=== PATIENT | male | born 1955 | race Caucasian/White ===

== ENCOUNTER 2020-09-11 12:44 | Emergency (ER) | payer MEDICARE, MEDICAID, SELFPAY ==
--- NOTE | ~2020-09-11 | XR_ITS ---
EXAMINATION: XR ELBOW, LEFT CLINICAL INFORMATION: Swelling. Fall/trauma 3 months ago. COMPARISON: None TECHNIQUE: AP, lateral, and oblique views of the left elbow. FINDINGS: There is superficial soft tissue swelling overlying the olecranon. The bony structures are intact and there is no acute or healing fracture, dislocation, destructive process. No visible elbow capsular effusion. No joint narrowing or erosive change. No soft tissue mineralization. XR/XR elbow LT min 3V IMPRESSION: 1. Soft tissue swelling overlying the olecranon. 2. Bony structures are unremarkable. No visible capsular effusion.
[2020-09-11 12:52] VITALS: BP 110/62; PULSE 68; RESP 18; TEMP 36.8; O2SAT 96; BMI 28.7
[2020-09-11] MEDS: Amoxicillin/Potassium Clav 875 MG TABLET PO (14:19)
[2020-09-11] MEDS: Moxifloxacin HCl 0.5 % Oph Sol 3 ML DRPBTL 1 DROP EYE-RIGHT (14:26)
--- NOTE | 2020-09-11 14:34 | ED_ITS ---
HPI - Extremity Problem General Chief complaint: Extremity Injury, Upper Stated complaint: elbow injury Time Seen by Provider: 09/11/20 14:02 Source: patient Mode of arrival: ambulatory History of Present Illness HPI Narrative: 64-year-old male with a past medical history of arrhythmia presenting to the ED complaining of left elbow swelling x3 months s/p fall 3 months ago. Denies more recent fall/injury or trauma. Also reports right ear pain x months with assoc hearing loss. Admits was treated for fungal ear infection with antifungal drops without resolution of symptoms. Denies fever, chills, headache, otorrhea, sore throat MD Complaint: extremity swelling Related Data Previous Rx's Medication Instructions Recorded acetaminophen [Tylenol Extra 500 mg PO Q6H PRN #20 tab 09/11/20 Strength] amoxicillin-pot clavulanate 1 tab PO Q12H 7 Days #14 tab 09/11/20 [Augmentin] ciprofloxacin-dexamethasone 4 drp OTIC (EARS) BID 7 Days #7.5 09/11/20 [Ciprodex] ml Allergies Allergy/AdvReac Type Severity Reaction Status Date / Time No Known Allergies Allergy Unverified 12/09/19 15:33 Review of Systems Review of Systems: Constitutional: No Fever, No Chills ENT/Mouth: + Ear Pain, + hearing loss, No Nasal Congestion, No Sinus Pain, No sore throat, No Rhinorrhea Cardiovascular: No Chest Pain, No SOB Respiratory: No Cough Musculoskeletal: No joint pain, No Myalgias, + Joint Swelling Skin: No Skin Lesions, No rash Neuro: No Weakness, No Numbness, No Paresthesias Yes all other systems are reviewed and are negative [facility] Past Medical History Attestation statement: The following information was validated with the patient. Medical History (Updated 09/11/20 @ 14:53 by SUSANNA Horn) Arrhythmia Social History Social History Advance Directives: Yes Advance Directives Information Provided: No Advance Directives on File: No Physical Exam Vital Signs: Vital Signs: Last Vital Signs Temp 98.2 F 09/11/20 12:52 Pulse 68 09/11/20 12:52 Resp 18 09/11/20 12:52 BP 110/62 09/11/20 12:52 Pulse Ox 96 09/11/20 12:52 Body Mass Index 28.7 Const: General: cooperative, healthy appearing and no acute distress Orientation/consciousness: patient oriented x3 Limitations: no limitations HENMT: Head: Yes normal to inspection Ears: TM normal on the left, mastoids normal, external ear abnormal no auricular tenderness, hearing grossly impaired on the right, normal mastoids bilaterally and unable to visualize TM on the right (Secondary to swelling/inflamed canal) General nose exam: Normal external nose present Face and sinus: Yes normal facial exam Eyes: General: appearance normal, both eyes and all related structures EOM: EOMs intact bilaterally Neck: Neck: Yes normal visual inspection, Yes no lymphadenopathy and Yes no meningeal signs Resp: Effort & Inspection: normal respiratory effort and not labored Cardio: Rate: regular rate Peripheral pulses: radial pulses present GI: Inspection: Yes normal to inspection Skin: Rashes: no rashes Wounds: no wounds Neuro: General: patient oriented x3 and no meningeal signs Gait exam (Neuro): Normal gait present Extrem: Other: Left elbow with olecranon bursitis. No overlying cellulitis. Nontender. Full range of motion intact. Neurovascularly intact distally Course Course Course Narrative: XR elbow LT min 3V IMPRESSION: 1. Soft tissue swelling overlying the olecranon. 2. Bony structures are unremarkable. No visible capsular effusion. MDM - Extremity (Nontraumatic) MDM Narrative Medical decision making narrative: 64-year-old male with a past medical history of arrhythmia presenting to the ED complaining of left elbow swelling x3 months s/p fall 3 months ago. Also reports right ear pain x months with assoc hearing loss. On exam VSS, NAD/well-appearing, physical exam as above. Per chart review patient was previously on Cipro otic drops and Cipro p.o., and clotrimazole without any relief in June (2 mos ago and never followed up with ENT). Mastoids normal. No evidence of malignant otitis externa or mastoiditis Physical exam consistent with likely otitis externa and otitis media, unable to visualize right TM. Discussed with patient would like to insert Wick however he refused. Discussed importance of close follow-up with ENT specialist, he verbalized understanding Frederick wrap applied to left elbow, discussed follow-up needed with Orthopedics Discharge Plan Discharge Clinical Impression: Otitis media Otitis externa Qualifiers: Chronicity: chronic Laterality: left Bursitis Qualifiers: Bursitis location: elbow Elbow bursitis location: unspecified Patient Disposition: Home, Self-Care Instructions: Elbow Bursitis (ED), Ear Infection (ED) Additional Instructions: YOU NEED TO SEE THE ENT DOCTOR SOON POSSIBLE AUGMENTIN IS AN ORAL ANTIBIOTIC, TAKE PRESCRIBED CIPRODEX IS AN EAR DROP ANTIBIOTIC THAT ALSO HAS A STEROID MIXED IN WHICH WILL HELP WITH YOUR EAR SWELLING IF YOU HAVE WORSENING EAR PAIN, DRAINAGE FROM EAR, FEVER OR CHILLS PLEASE RETURN TO THE ED WEAR FREDERICK WRAP ON ELBOW FOR SWELLING/COMFORT AND STABILITY FOLLOW-UP WITH ORTHOPEDIC DOCTOR TAKE TYLENOL FOR PAIN Prescriptions: New acetaminophen [Tylenol Extra Strength] 500 mg tablet 500 mg PO Q6H PRN (Reason: pain or fever) Qty: 20 RF: 0 ciprofloxacin-dexamethasone [Ciprodex] 0.3-0.1 % drops,suspension 4 drp otic (ears) BID 7 Days Qty: 7.5 RF: 0 amoxicillin-pot clavulanate [Augmentin] 875-125 mg tablet 1 tab PO Q12H 7 Days Qty: 14 RF: 0 Referrals: Claire Elmore PA-C [Physician Front Office Supervisor] - 1 week Jeromy Pereira [Physician] - 2 days Interventions: ED Discharge Assessment Last Done: 09/11/20 14:57 Discharge Date/Time: 09/11/20 14:57
== END 2020-09-11 14:57 | disposition home or self-care (01) ==
PROVIDERS: Emergency Provider Emergency Medicine; PCP Family Medicine Geriatric Medicine
DX: M70.32 Other bursitis of elbow, left elbow (principal); Y93.9 Activity, unspecified; H66.91 Otitis media, unspecified, right ear
CPT/HCPCS: 73080; 99283; 99284

== ENCOUNTER 2021-12-06 11:15 | Emergency (ER) | payer MEDICARE, MEDICAID, SELFPAY ==
[2021-12-06 11:26] VITALS: BP 124/81; PULSE 54; RESP 18; TEMP 36.4; O2SAT 94; BMI 28.7
== END 2021-12-06 12:46 | disposition left against medical advice (07) ==
PROVIDERS: Emergency Provider Emergency Medicine; PCP Hospitalist
DX: H92.01 Otalgia, right ear (principal)
CPT/HCPCS: 99281

== ENCOUNTER 2024-05-17 11:09 | Emergency (ER) | payer MEDICARE, MEDICAID, SELFPAY ==
--- OUTSIDE RECORDS SUMMARY | 2024-05-17 14:02 | XMS_ITS ---
Author Organization [facility] Address [address] [address] Care Team Providers Care Inspector Metal Can Name Role Phone RAYMUNDO SYKES Primary Care Provider REASON FOR VISIT Refills Medications Medication SIG (Take, Route, Frequency, Duration) Notes Start Date End Date Status Albuterol Sulfate 108 (90 Base) MCG/ACT 1 puff as needed Inhalation every 4 hrs for 30 days please have patient call office and book appt. Active Encounters Encounter Location Date Provider Diagnosis [facility] [address] [address] 12/02/2023 ONEL FONSECA Plan Of Treatment Medication Medication Name Sig Start Date Stop Date Notes Albuterol Sulfate 108 (90 Base) MCG/ACT 1 puff as needed Inhalation every 4 hrs for 30 days please have patient call office and book appt. Progress Notes * Juan MARCUSDOB:1955 ( 68 yo M)Acc No.[id number]:12/02/2023 Patient:?Juan MARCUS :1955???Age:68 Y???Sex:Male Address:[address] [place] [phone] * Refills? Refill Albuterol Sulfate Aerosol Powder Breath Activated, 108 (90 Base) MCG/ACT, Inhalation, 1, 1 puff as needed, every 4 hrs, 30 days, Refills=0 * true * Date:? Generated for Printi ng/Faxing/eTransmitting on:?05/17/2024 02:01 PM EST
--- OUTSIDE RECORDS SUMMARY | 2024-05-17 14:02 | XMS_ITS ---
Author Organization [facility] Address [address] [facility] [address] [place] [address] Care Team Providers Care Manager Balance Name Role Phone ONEL FONSECA Primary Care Provider REASON FOR VISIT Albuterol and Proair PA Encounters Encounter Location Date Provider Diagnosis [facility] [address] [facility] [address] [place] [address] 01/14/2024 ONEL FONSECA Plan Of Treatment No Information Progress Notes * Juan MARCUSDOB:1955 ( 68 yo M)Acc No.[id number]:01/14/2024 Patient:?Juan MARCUS :1955???Age:68 Y???Sex:Male Address:[address] [place] [phone] * true * Date:? Generated for Sharon veliz/Fatmata/eTransmitting on:?05/17/2024 02:02 PM EST
--- OUTSIDE RECORDS SUMMARY | 2024-05-17 14:02 | XMS_ITS | Clinical Summary ---
Author Organization [facility] Address [address] [place] [address] Care Team Providers Care Loan Servicing Specialist Name Role Phone Unavailable Primary Care Provider Unavailabl e Source Comments PLEASE NOTE, if this patient is a minor, it may be UNLAWFUL to discuss sensitive information that is contained in these records (such as FAMILY PLANNING, MENTAL HEALTH or SUBSTANCE ABUSE) with the minor patient's parent or other person without the patient's specific authorization.[facility] Allergies No known active allergies Medications No known medications Active Problems Problem Noted Date Diagnosed Date Tobacco use disorder 11/10/2020 Overview (11/10/2020): Seen at [facility] lung cancer screening, scheduled for LDCT Mixed hyperlipidemia 10/16/2020 Overview (11/10/2020): Last Assessment & Plan: Well controlled lipid profile. Continue dietary modification. Paroxysmal atrial fibrillation ([facility]) 021 Overview (11/10/2020): Last Assessment & Plan: He has no symptoms referable to his afib. Continue with BB and CCB at current doses. Continue Anticoagulation. The risks and benefits of anticoagulation discussed with the patient and the patient agrees to continue. Depression 01/01/2017 Overview (11/10/2020): Currently without psych Insomnia 01/01/2017 Benign prostatic hyperplasia 06/27/2016 CTS (carpal tunnel syndrome) 06/27/2016 Overview (11/10/2020): Right CTS; left CTR Thrombocytopenia ([facility]) 06/27/2016 Overview (11/10/2020): 06/07 range 79,000- 126,000 Chronic bronchitis ([facility]) 04/04/2015 Overview (11/10/2020): + Symptoms. PFTs show reactive airways only. Discussed w/pulm - emphysema on CT non-contributory Low dose CT (02/24/17):subcemtimeter pulm nodules, and emphysematous changes Cocaine abuse ([facility]) 12/30/2013 Overview (11/10/2020): Per outside records 12/05 Hep C w/o coma, chronic ([facility]) 10/15/2012 Overview (11/10/2020): Chronic Hepatitis C Genotype 2B. Tx Started 05/25/15 Sovaldi & Ribavirin for 12 Weeks. End Date 08/17/15. Complete ETR but failed SVR: pos PCR 09/22/2015. (Failed IFN/RIBA x 2 in 2000; failed sovaldi and ribavirin 2015.) Immunizations Name Administration Dates Next Due Hep A, adult 06/20/2016,12/09/2013 PNEUMOCOCCAL POLYSACCHARIDE PPV23 12/09/2013 PPD 05/19/2016 TDAP 10/15/2012 Social History Tobacco Use Types Packs/Day Years Used Date Smoking Tobacco: Every Day Cigarettes Smokeless Tobacco: Never Comments:20-30 a day Alcohol Use Standard Drinks/Week Comments Not Currently 0 (1 standard drink = 0.6 oz pur e alcohol) Social Connections Answer Date Recorded Connectedness 0 11/10/2020 Financial Resource Strain Answer Date R ecorded Financial Resource Strain 0 2020 Stress Answer Date Recorded Stress 0 11/10/2020 Physical Activity Answer Date Recorded Physical Activity 0 11/01/2020 Food Insecurity Answer Date Recorded Food 0 11/10/2020 Transportation Needs Answer Date Record ed Transportation 0 11/10/2020 Housing Stability Answer Date Recorded Housing 0 11/10/2020 Safety and Environment Answer Date John rded Safety 0 11/10/2020 Utilities Answer Date Recorded Utilities 0 11/10/2020 Employment Answer Date Recorded Employment 0 11/01/2020 Sex and Gender Information Value Date Recorded Sex Assigned at Male 11/10/2020 10:40 AM PDT Legal Sex Male 7:38 AM PST Gender Identity Male 11/10/2020 10:40 AM PDT Sexual Orientation Straight 11/10/2020 10 :40 AM PDT Last Filed Vital Signs Vital Sign Reading Time Taken Comments Blood Pressure 144/83 07/02/2022 2:15 PM EDT Pulse 71 07/02/2022 2:15 PM EDT Temperature 36.7 ??C (98.1 ??F) 11/10/2020 1:42 PM ED T Respiratory Rate 20 11/10/2020 1:42 PM EDT Oxygen Saturation 95% 11/10/2020 1:42 PM EDT Inhaled Oxygen Concentration - - Weight 84 kg (185 lb 3.2 oz) 11/10/2020 1:42 PM EDT Height 177.5 cm (5' 9.88 ) 11/10/2020 1:42 PM ED T Body Mass Index 26.66 11/10/2020 1:42 PM EDT Plan of Treatment Health Maintenance Due Date Last Done Comments Dental Perio Charting 1955 Diabetes Screening 1955 Lipid Screening 1955 Tobacco Cessation Counseling (#1) [address] Colonography 09/14/1999 Colonoscopy 09/14/1999 Colorectal Cancer Screening 09/14/1999 FIT/gFOBT 09/14/1999 Fecal DNA 09/14/1999 Flexible Sigmoidoscopy 09/14/1999 Imm-Zoster, Recombinant (1 of 2) 2004 Imm-Hepatitis B (1 of 3 - Ri sk 3-dose series) 2014 Imm-Pneumococcal 65+ (2 of 2 - PCV) 12/09/201412/09 Abdominal Aortic Aneurysm Screening 09/14/2019 Falls Prevention 09/14/2019 Depression Monitoring 02/10/2021 11/10/2020 Imm-DTaP/Tdap/Td (2 - Td or Tdap) 10/15/2022 013 Hypertension Screening (#1) 07/02/2023 Dental Prophy 07/05/2023 07/02/2022 Ftd-NGGDP-06 (3 - season) 2023 022, 02/27/2021 Imm-Influenza (#1) 2023 Alcohol and Drug Screen 03/24/2024 11/10/2020 Imm-Hepatitis A Completed 06/20/2016, 12/09/2013 Procedures Procedure Name Priority Date/Time Associated Diagnosis Comments PROPHYLAXIS - ADULT Routine 07/02/2022 2:20 PM ED T Caries Encounter for dental examination and cleaning without abnormal findings from Last 3 Months or Most Recently Relevant to Health Maintenance [place] [facility]
--- OUTSIDE RECORDS SUMMARY | 2024-05-17 14:02 | XMS_ITS | Clinical Summary ---
Author Organization [facility] it Address [address] [place] [address] Care Team Providers Care Butter Grader Name Role Phone Denzel Roman MD Primary Care Provider [phone] Medications atorvastatin (LIPITOR) 40 mg tablet TAKE ONE TABLET BY MOUTH EVERY DAY 90 tablet 2 02/16/2024 Active Surgical History Surgery Date Site/Laterality Comments APPENDECTOMY 1962 PROCEDURE: HISTORICAL APPENDECTOMY COLONOSCOPY 2012 PROCEDURE: HISTORICAL COLONOSCOPY; COMMENT: normal CARPAL TUNNEL RELEASE Left PROCEDURE: HISTORICAL CARPAL TUNNEL REL Medical History Medical History Date Comments Depression DX:Depression Bipolar 1 disorder (CMS/HCC) DX: Bipolar 1 disorder (HCC) Hep C w/o coma, chronic (CMS/HCC) DX:Hep C w/o coma, chronic (HCC) Tobacco use disorder DX:Tobacco use disorder 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/04/2015 DX:COPD (chronic obs tructive pulmonary disease) with emphysema (HCC) BPH (benign prostatic hypertrophy) 06/27/2016 DX:BPH (benign prostatic hypertrophy) Thrombocytopenia (CMS/HCC) 06/27/2016 DX:Th rombocytopenia (HCC); COMMENT: 06/07 range 79,000- 126,000 CTS (carpal tunnel syndrome) 06/27/2016 DX: CTS (carpal tunnel syndrome); COMMENT: Right CTS; left CTR Depression 01/01/2017 DX:Depression Family History Medical History Relation Name Comments Other: liver cancer Father ; CAD Abdominal Aortic Anuerysm (AAA) Maternal Grandfather Diabetes Maternal Grandmother Emphysema Mother Relation Name Status Comments Brother Alive times 2, health y Daughter Alive healthy Father Alive heart disease, 3 heart attacks: CABG Maternal Grandfather (Age 76) AA A ruptured Maternal Grandmother (Age 80s) o ld age Mother (Age 68) emphysema; smoker Paternal Grandfather (Age 70s) T hroat cnacer Paternal Grandmother [place] Sister Alive times 3, health y Social History Tobacco Use Types Packs/Day Years Used Date Smoking Tobacco: Every Day Cigarettes Smokeless Tobacco: Never Alcohol Use Standard Drinks/Week Comments Not Currently 0 (1 standard drink = 0.6 oz pur e alcohol) Sex and Gender Information Value Date Recorded Sex Assigned at Not on file Legal Sex Male 4:11 AM EST Gender Identity Not on file Sexual Orientation Not on file Obstetrics History Last Filed Vital Signs Vital Sign Reading Time Taken Comments Blood Pressure 114/84 11/18/2023 8:56 AM EDT Pulse 50 11/18/2023 8:56 AM EDT Temperature - - Respiratory Rate - - Oxygen Saturation - - Inhaled Oxygen Concentration - - Weight 81.6 kg (180 lb) 11/18/2023 8:56 AM EDT Height 180.3 cm (5' 11 ) 11/18/2023 8:56 AM EDT Body Mass Index 25.1 11/18/2023 8:56 AM EDT Plan of Treatment Health Maintenance Due Date Last Done Comments Zoster Vaccines (1 of 2) 2004 Hepatitis B Vaccines (1 of 3 - Risk 3-dose series) 2014 RSV Immunization Patients 60 + Years Old (1 - Risk 60-74 years 1-dose series) 2014 Pneumococcal Vaccine: 50+ Years (2 of 2 - PCV) 12/09/2014 12/09/2013 Abdominal Aortic Aneurysm (AAA) Screen 03/02/2022 Cholesterol Screening (Lipid Panel) 03/02/2022 Colorectal Cancer Screening: Colonoscopy 03/02/2022 Depression Screening 03/02/2022 Falls Risk Assessment 03/02/2022 Hepatitis C Screening 03/02/2022 Lung Cancer Screening (Low Dose CT) 03/02/2022 Social Influencers of Health Screening 03/02/2022 DTaP,Tdap,and Td Vaccines (2 - Td or Tdap) 10/15/2022 10/15/2012 COVID-19 Vaccine ( - 2023-2 5 season) 2023 Influenza Vaccine (#1) 2023 Hepatitis A Vaccines Completed 06/20/2016, 12/09/2013 HIB Vaccines Aged Out No longer eligi ble based on patient's age to complete this topic HPV Vaccines Aged Out No longer eligi ble based on patient's age to complete this topic IPV Vaccines Aged Out No longer eligi ble based on patient's age to complete this topic MMR Vaccines Aged Out No longer eligi ble based on patient's age to complete this topic Meningococcal ACWY Vaccine Aged Out N o longer eligible based on patient's age to complete this topic Meningococcal B Vacine Aged Out No lo nger eligible based on patient's age to complete this topic RSV Immunization Patients Under 20 months Aged Out No longer eligible b ased on patient's age to complete this topic Varicella Vaccines Aged Out No longer eligible based on patient's age to complete this topic Advance Directives Documents on File Type Date Recorded Patient Pain Management Physician Expl anation Health Care Decision (hx) 03/04/2019 GAIL PHAN DIRECTIVE Care Teams Butter Grader Relationship Specialty Start Date End Date Denzel Roman MD [address] [place] [address] [id number] [place] [address] PCP - General Internal Medicine 10/13/20
--- OUTSIDE RECORDS SUMMARY | 2024-05-17 14:02 | XMS_ITS ---
Author Organization [facility] Address [address] [facility] [address] [place] [address] Care Team Providers Care On Site Soil Evaluator Name Role Phone ONEL FONSECA Primary Care Provider REASON FOR VISIT Inhaler clarification Encounters Encounter Location Date Provider Diagnosis [facility] [address] [facility] [address] [place] [address] 12/19/2023 ONEL FONSECA Plan Of Treatment No Information Progress Notes * ANGELINEJuan LiveDOB:1955 ( 68 yo M)Acc No.[id number]:12/19/2023 Patient:?Juan MARCUS :1955???Age:68 Y???Sex:Male Address:[address] [place] [phone] * true * Date:? Generated for Sharon veliz/Fatmata/eTransmitting on:?05/17/2024 02:02 PM EST
--- OUTSIDE RECORDS SUMMARY | 2024-05-17 14:02 | XMS_ITS | Clinical Summary ---
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 Recurrent left carpal tunnel syndrome 05/22/2022 Social History Tobacco Use Types Packs/Day Years Used Date Smoking Tobacco: Unknown Tobacco Cessation:Counseling Given: Not Answered Sex and Gender Information Value Date Recorded Sex Assigned at Not on file Gender Identity Not on file Sexual Orientation Not on file Job Start Date Occupation Industry Not on file Not on file Not on file Plan of Treatment Health Maintenance Due Date Last Done Comments Hepatitis C Screening 1955 COVID-19 Vaccine (#1) 03/15/1955 Depression Screening 1966 Preventative Health Evaluation 1972 Colon Cancer Screening (Colonoscopy) 09/14/1999 Shingrix-Zoster Vaccine (1 of 2) 2004 Fall Risk Assessment 09/14/2019 Pneumococcal Vaccine (2 of 2 - PCV) 09/14/2019 12/09/2013 DTap / Tdap / Td (2 - Td or Tdap) 10/15/2022 013 Influenza Vaccine (#1) 2023 RSV Adult > 60+ Yrs or Pregn ant (1 - 1-dose 75+ series) 2029 Hepatitis B Vaccines Aged Out No long er eligible based on patient's age to complete this topic RSV Ped < 20 months Aged Out No longe r eligible based on patient's age to complete this topic
== END 2024-05-17 13:04 | disposition left against medical advice (07) ==
PROVIDERS: Emergency Provider Emergency Medicine; PCP Hospitalist
DX: H92.01 Otalgia, right ear (principal); Z53.21 Procedure and treatment not carried out due to patient leaving prior to being seen by health care provider